=== PATIENT | female | born 1965 | race Two or more races ===

== ENCOUNTER 2017-02-19 09:43 | Emergency (ER) | payer BC ==
[2017-02-19] MEDS ORDERED: Aspirin 81 MG Tab.Chew PO ONE (09:57)
[2017-02-19] MEDS ORDERED: Sodium Chloride 0.9% 1,000 ML IV ONE (09:57)
--- NOTE | 2017-02-19 09:58 | EDM.PDOC ---
<Orlando Zee - Last Filed: 02/19/17 11:16> ED HPI GENERAL MEDICAL PROBLEM - General Chief Complaint: Chest Pain Stated Complaint: BROUGHT OVER FROM CLINIC UNK Time Seen by Provider: 02/19/17 09:57 - History of Present Illness INITIAL COMMENTS - FREE TEXT/NARRATIVE: History of present illness: [51-year-old female comes in complaining of substernal chest pain. Patient has a history of high stressful job and some level of anxiety. Patient denies family history of cardiac issues and/or personal issues of cardiac problems in the past] Review of systems: As per history of present illness and below otherwise all systems reviewed and negative. Past medical history: As per history of present illness and as reviewed below otherwise noncontributory. Surgical history: As per history of present illness and as reviewed below otherwise noncontributory. Social history: No reported history of drug or alcohol abuse. Family history: As per history of present illness and as reviewed below otherwise noncontributory. Physical exam: HEENT: Atraumatic, normocephalic, pupils reactive, negative for conjunctival pallor or scleral icterus, mucous membranes moist, throat clear, neck supple, nontender, trachea midline. Lungs: Clear to auscultation, breath sounds equal bilaterally, chest nontender. Heart: S1S2, regular, negative for clicks, rubs, or JVD. Abdomen: Soft, nondistended, nontender. Negative for masses or hepatosplenomegaly. Negative for costovertebral tenderness. Pelvis: Stable nontender. Genitourinary: Deferred. Rectal: Deferred. Extremities: Atraumatic, negative for cords or calf pain. Neurovascular unremarkable. Neuro: Awake, alert, oriented. Cranial nerves II through XII unremarkable. Cerebellum unremarkable. Motor and sensory unremarkable throughout. Exam nonfocal. Diagnostics: [CBC, CMP, chest x-ray, EKG, amylase, lipase, troponin, UA] Therapeutics: [IV fluid] Impression: [#1 atypical chest pain #2 anxiety #3 UTI] Plan: [Antibiotics, brief period of time off of work, prescription for some anxiolytics] Definitive disposition and diagnosis as appropriate pending reevaluation and review of above. Left Chest Pain Score (Numeric/FACES): 6 - Related Data Allergies Allergy/AdvReac Type Severity Reaction Status Date / Time No Known Allergies Allergy Verified 02/19/17 10:17 Home Meds: Home Meds Rosuvastatin [Crestor] 0 mg PO DAILY 10/14/14 [History] Nitrofurantoin Monohyd/M-Cryst [Macrobid 100 mg Capsule] 100 mg PO BID #20 capsule 02/19/17 [Rx] ED ROS GENERAL - Review of Systems Review Of Systems: See Below (See history of present illness) ED EXAM, GENERAL - Physical Exam Exam: See Below (History of present illness) Course - Vital Signs Last Recorded V/S: Last Vital Signs Temp 36.1 C 02/19/17 10:15 Pulse 64 02/19/17 11:32 Resp 18 02/19/17 11:32 BP 128/79 02/19/17 11:32 Pulse Ox 98 02/19/17 11:32 - Orders/Labs/Meds Labs: Laboratory Tests 02/19/17 02/19/17 02/19/17 Range/Units 10:10 10:10 10:34 WBC 5.68 (4.0-11.0) K/uL RBC 4.56 (4.30-5.90) M/uL Hgb 13.2 (12.0-16.0) g/dL Hct 40.3 (36.0-46.0) % MCV 88.4 (80.0-98.0) fL MCH 28.9 (27.0-32.0) pg MCHC 32.8 (31.0-37.0) g/dL RDW Std Deviation 43.3 (28.0-62.0) fl RDW Coeff of Benjamin 13 (11.0-15.0) % Plt Count 225 (150-400) K/uL MPV 10.00 (7.40-12.00) fL Neut % (Auto) 43.2 L (48.0-80.0) % Lymph % (Auto) 47.4 H (16.0-40.0) % [place] % (Auto) 7.0 (0.0-15.0) % Eos % (Auto) 1.9 (0.0-7.0) % Baso % (Auto) 0.5 (0.0-1.5) % Neut # (Auto) 2.5 (1.4-5.7) K/uL Lymph # (Auto) 2.7 H (0.6-2.4) K/uL [place] # (Auto) 0.4 (0.0-0.8) K/uL Eos # (Auto) 0.1 (0.0-0.7) K/uL Baso # (Auto) 0.0 (0.0-0.1) K/uL Nucleated RBC % 0.0 /100WBC Nucleated RBCs # 0 K/uL Sodium 140 (136-146) mmol/L Potassium 3.9 (3.5-5.1) mmol/L Chloride 108 (98-110) mmol/L Carbon Dioxide 24 (21-31) mmol/L BUN 13 (6.0-23.0) mg/dL Creatinine 0.7 (0.6-1.5) mg/dL Est Cr Clr Drug Dosing 81.18 mL/min Estimated GFR (MDRD) > 60.0 ml/min Glucose 89 (60-110) mg/dL Calcium 9.1 (8.8-10.8) mg/dL Total Bilirubin 0.5 (0.1-1.5) mg/dL AST 25 (5-40) IU/L ALT 21 (8-54) IU/L Alkaline Phosphatase 78 (40-150) Creatine Kinase 143 (9-236) IU/L CK-MB (CK-2) 1.1 (0-6.6) ng/ml Troponin I < 0.10 (0.0-0.29) NG/ML Total Protein 7.5 (6.0-8.0) g/dL Albumin 4.1 (3.5-5.0) g/dL Globulin 3.4 (2.0-3.5) g/dL Albumin/Globulin Ratio 1.2 L (1.3-2.8) Amylase 64 (10-90) U/L Lipase 20 (7-80) U/L Urine Color YELLOW Urine Appearance CLOUDY Urine pH 6.0 (5.0-8.0) Ur Specific [place] 1.020 (1.001-1.035) Urine Protein NEGATIVE (NEGATIVE) mg/dL Urine Glucose (UA) NEGATIVE (NEGATIVE) mg/dL Urine Ketones NEGATIVE (NEGATIVE) mg/dL Urine Occult Blood NEGATIVE (NEGATIVE) Urine Nitrite POSITIVE H (NEGATIVE) Urine Bilirubin NEGATIVE (NEGATIVE) Urine Urobilinogen 0.2 (<2.0) EU/dL Ur Leukocyte Esterase LARGE (NEGATIVE) Urine RBC 0-1 (0-2/HPF) Urine WBC 45-50 (0-5/HPF) Ur Epithelial Cells FEW (NONE-FEW) Urine Bacteria 2+ H (NEGATIVE) Meds: Medications Discontinued Medications Generic Name Dose Route Start Last Admin Trade Name Pura PRN Reason Stop Dose Admin Aspirin 324 mg 02/19/17 09:57 02/19/17 10:12 Aspirin PO 02/19/17 09:58 324 mg ONETIME ONE Administration Sodium Chloride 1,000 mls @ 999 mls/hr 02/19/17 09:57 02/19/17 10:13 Normal Saline IV 02/19/17 10:57 999 mls/hr STAT ONE Administration Departure - Departure Time of Disposition: Disposition: Home, Self-Care 01 Condition: Good Clinical Impression: UTI (urinary tract infection), Anxiety, Atypical chest pain - Discharge Information Prescriptions: Nitrofurantoin Monohyd/M-Cryst [Macrobid 100 mg Capsule] 100 mg PO BID #20 capsule Instructions: Urinary Tract Infection, Adult, [id number] Referrals: PCP,Unknown [Primary Care Provider] - Forms: ED Department Discharge Additional Instructions: The following information is given to patients seen in the emergency department who are being discharged to home. This information is to outline your options for follow-up care. We provide all patients seen in our emergency department with a follow-up referral. The need for follow-up, as well as the timing and circumstances, are variable depending upon the specifics of your emergency department visit. If you don't have a primary care physician on staff, we will provide you with a referral. We always advise you to contact your personal physician following an emergency department visit to inform them of the circumstance of the visit and for follow-up with them and/or the need for any referrals to a consulting specialist. The emergency department will also refer you to a specialist when appropriate. This referral assures that you have the opportunity for follow-up care with a specialist. All of these measure are taken in an effort to provide you with optimal care, which includes your follow-up. Under all circumstances we always encourage you to contact your private physician who remains a resource for coordinating your care. When calling for follow-up care, please make the office aware that this follow-up is from your recent emergency room visit. If for any reason you are refused follow-up, please contact the [facility] Emergency Department at and asked to speak to the emergency department charge nurse. Take medication as directed Follow-up with PCP in 1-2 days Return to ED as needed as discussed <Chris Baum - Last Filed: 02/22/17 08:10> ED HPI GENERAL MEDICAL PROBLEM - General Source of Information: Reports: Patient - History of Present Illness INITIAL COMMENTS - FREE TEXT/NARRATIVE: HISTORY AND PHYSICAL: Patient seen and examined by Orlando zee, see her note Definitive disposition and diagnosis as appropriate pending reevaluation and review of above. Past Medical History - Past Health History Medical/Surgical History: Denies Medical/Surgical History Cardiovascular History: Reports: High Cholesterol - Infectious Disease History Infectious Disease History: Reports: Chicken Pox Social & Family History - Family History Family Medical History: Noncontributory - Tobacco Use Smoking Status *Q: Former Smoker Years of Tobacco use: 4 - Caffeine Use Caffeine Use: Reports: Coffee - Recreational Drug Use Recreational Drug Use: No Course - Vital Signs Last Recorded V/S: Last Vital Signs Temp 36.1 C 02/19/17 10:15 Pulse 64 02/19/17 11:32 Resp 18 02/19/17 11:32 BP 128/79 02/19/17 11:32 Pulse Ox 98 02/19/17 11:32 - Orders/Labs/Meds Labs: Laboratory Tests 02/19/17 02/19/17 02/19/17 Range/Units 10:10 10:10 10:34 WBC 5.68 (4.0-11.0) K/uL RBC 4.56 (4.30-5.90) M/uL Hgb 13.2 (12.0-16.0) g/dL Hct 40.3 (36.0-46.0) % MCV 88.4 (80.0-98.0) fL MCH 28.9 (27.0-32.0) pg MCHC 32.8 (31.0-37.0) g/dL RDW Std Deviation 43.3 (28.0-62.0) fl RDW Coeff of Benjamin 13 (11.0-15.0) % Plt Count 225 (150-400) K/uL MPV 10.00 (7.40-12.00) fL Neut % (Auto) 43.2 L (48.0-80.0) % Lymph % (Auto) 47.4 H (16.0-40.0) % [place] % (Auto) 7.0 (0.0-15.0) % Eos % (Auto) 1.9 (0.0-7.0) % Baso % (Auto) 0.5 (0.0-1.5) % Neut # (Auto) 2.5 (1.4-5.7) K/uL Lymph # (Auto) 2.7 H (0.6-2.4) K/uL [place] # (Auto) 0.4 (0.0-0.8) K/uL Eos # (Auto) 0.1 (0.0-0.7) K/uL Baso # (Auto) 0.0 (0.0-0.1) K/uL Nucleated RBC % 0.0 /100WBC Nucleated RBCs # 0 K/uL Sodium 140 (136-146) mmol/L Potassium 3.9 (3.5-5.1) mmol/L Chloride 108 (98-110) mmol/L Carbon Dioxide 24 (21-31) mmol/L BUN 13 (6.0-23.0) mg/dL Creatinine 0.7 (0.6-1.5) mg/dL Est Cr Clr Drug Dosing 81.18 mL/min Estimated GFR (MDRD) > 60.0 ml/min Glucose 89 (60-110) mg/dL Calcium 9.1 (8.8-10.8) mg/dL Total Bilirubin 0.5 (0.1-1.5) mg/dL AST 25 (5-40) IU/L ALT 21 (8-54) IU/L Alkaline Phosphatase 78 (40-150) Creatine Kinase 143 (9-236) IU/L CK-MB (CK-2) 1.1 (0-6.6) ng/ml Troponin I < 0.10 (0.0-0.29) NG/ML Total Protein 7.5 (6.0-8.0) g/dL Albumin 4.1 (3.5-5.0) g/dL Globulin 3.4 (2.0-3.5) g/dL Albumin/Globulin Ratio 1.2 L (1.3-2.8) Amylase 64 (10-90) U/L Lipase 20 (7-80) U/L Urine Color YELLOW Urine Appearance CLOUDY Urine pH 6.0 (5.0-8.0) Ur Specific [place] 1.020 (1.001-1.035) Urine Protein NEGATIVE (NEGATIVE) mg/dL Urine Glucose (UA) NEGATIVE (NEGATIVE) mg/dL Urine Ketones NEGATIVE (NEGATIVE) mg/dL Urine Occult Blood NEGATIVE (NEGATIVE) Urine Nitrite POSITIVE H (NEGATIVE) Urine Bilirubin NEGATIVE (NEGATIVE) Urine Urobilinogen 0.2 (<2.0) EU/dL Ur Leukocyte Esterase LARGE (NEGATIVE) Urine RBC 0-1 (0-2/HPF) Urine WBC 45-50 (0-5/HPF) Ur Epithelial Cells FEW (NONE-FEW) Urine Bacteria 2+ H (NEGATIVE) Meds: Medications Discontinued Medications Generic Name Dose Route Start Last Admin Trade Name Freq PRN Reason Stop Dose Admin Aspirin 324 mg 02/19/17 09:57 02/19/17 10:12 Aspirin PO 02/19/17 09:58 324 mg ONETIME ONE Administration Sodium Chloride 1,000 mls @ 999 mls/hr 02/19/17 09:57 02/19/17 10:13 Normal Saline IV 02/19/17 10:57 999 mls/hr STAT ONE Administration
[2017-02-19 10:43] LABS: CHLORIDE,CL 108 mmol/L (98-110); SODIUM,NA 140 mmol/L (136-146)
--- NOTE | 2017-02-19 10:58 | CR ---
EXAMINATION: Portable chest radiograph. HISTORY: Pain. FINDINGS: The trachea is midline. The cardiomediastinal silhouette is within normal limits. No pulmonary infilt rates, effusions or pneumothorax. Osseous structures appear unremarkable. IMPRESSION: No acute cardiopulmonary process.
[2017-02-19 11:37] VITALS: BP 128/79
== END 2017-02-19 11:34 | disposition home or self-care (01) ==
LOC: MW.ED 09:43
DX: R07.89 Other chest pain (principal); F41.9 Anxiety disorder, unspecified; N39.0 Urinary tract infection, site not specified; Z87.891 Personal history of nicotine dependence
CPT/HCPCS: 71010; 80053; 81001; 82150; 82550; 82553; 83690; 84484; 85025; 93005; 96360; 99285; A9270; J7040; 99283

== ENCOUNTER 2018-10-22 10:02 | Emergency (ER) | payer BC, OTHER ==
[2018-10-22] MEDS ORDERED: Ketorolac 30 MG/ML SDV IM ONE (10:38)
[2018-10-22] MEDS ORDERED: Diphtheria,Pertussis(Acell),Tetanus Vaccine 0.5 ML Syringe IM ONE (10:42)
--- NOTE | 2018-10-22 10:53 | EDM.PDOC ---
ED HPI GENERAL MEDICAL PROBLEM - General Chief Complaint: Lower Extremity Injury/Pain Stated Complaint: INJURED LEG Time Seen by Provider: 10/22/18 10:49 - History of Present Illness INITIAL COMMENTS - FREE TEXT/NARRATIVE: 53 y/o female here for right lower extremity pain. States that a small steel table fell on her right mid tibial area. Endorses pain when ambulating or direct pressure. No history of trauma, fractures, surgeries to lower extremities. Took ibuprofen with minimal improvement in pain. No active bleeding. Does not recall her last tetanus shot. Sensation and foot strength intact. right gentile-lower leg Pain Score (Numeric/FACES): 8 - Related Data Allergies Allergy/AdvReac Type Severity Reaction Status Date / Time No Known Allergies Allergy Verified 10/22/18 10:26 Home Meds: Home Meds Rosuvastatin [Crestor] 10 mg PO DAILY 10/14/14 [History] Ascorbic Acid/Ascorbate Sodium [Vitamin C 250 mg Tablet Chew] 1 tab PO DAILY [History] Aspirin 81 mg PO DAILY 10/22/18 [History] Past Medical History - Past Health History Medical/Surgical History: Denies Medical/Surgical History Cardiovascular History: Reports: High Cholesterol - Infectious Disease History Infectious Disease History: Reports: Chicken Pox Social & Family History - Family History Family Medical History: Noncontributory - Tobacco Use Smoking Status *Q: Never Smoker - Caffeine Use Caffeine Use: Reports: Coffee - Recreational Drug Use Recreational Drug Use: No Review of Systems - Review of Systems Review Of Systems: ROS reveals no pertinent complaints other than HPI. ED EXAM, GENERAL - Physical Exam Exam: See Below General Appearance: Alert, WD/WN, No Apparent Distress Extremities: Other (right lower extremity abrasion on right mid tibial area. No active bleeding. Sensation and strength intact. Able to ambulate without assistance.) Course - Vital Signs Text/Narrative:: Toradol 30 mg IM once. Tdap IM once. Xray of right tibia do not show any acute fractures. Last Recorded V/S: Last Vital Signs Temp 36.2 C 10/22/18 10:24 Pulse 76 10/22/18 10:24 Resp 16 10/22/18 10:24 BP 128/96 H 10/22/18 10:24 Pulse Ox 97 10/22/18 10:24 - Orders/Labs/Meds Orders: Active Orders 24 hr Category Date Time Status Vaccines to be Administered [RC] PER UNIT ROUTINE Care 10/22/18 10:42 Active Meds: Medications Discontinued Medications Generic Name Dose Route Start Last Admin Trade Name Pura PRN Reason Stop Dose Admin Diphtheria/Tetanus/Acell Pertussis 0.5 ml 10/22/18 10:42 10/22/18 10:57 Adacel IM 10/22/18 10:43 0.5 ml .ONCE ONE Administration Ketorolac Tromethamine 30 mg 10/22/18 10:38 10/22/18 10:56 Toradol IM 10/22/18 10:39 30 mg ONETIME ONE Administration Departure - Departure Time of Disposition: 11:36 Disposition: Home, Self-Care 01 Condition: Good Clinical Impression: Contusion of right tibia, Abrasion - Discharge Information *PRESCRIPTION DRUG MONITORING PROGRAM REVIEWED*: Not Applicable *COPY OF PRESCRIPTION DRUG MONITORING REPORT IN PATIENT WAQAS: Not Applicable Instructions: Contusion, [id number] Referrals: PCP,Unknown [Primary Care Provider] - Forms: ED Department Discharge Additional Instructions: The following information is given to patients seen in the emergency department who are being discharged to home. This information is to outline your options for follow-up care. We provide all patients seen in our emergency department with a follow-up referral. The need for follow-up, as well as the timing and circumstances, are variable depending upon the specifics of your emergency department visit. If you don't have a primary care physician on staff, we will provide you with a referral. We always advise you to contact your personal physician following an emergency department visit to inform them of the circumstance of the visit and for follow-up with them and/or the need for any referrals to a consulting specialist. The emergency department will also refer you to a specialist when appropriate. This referral assures that you have the opportunity for follow-up care with a specialist. All of these measure are taken in an effort to provide you with optimal care, which includes your follow-up. Under all circumstances we always encourage you to contact your private physician who remains a resource for coordinating your care. When calling for follow-up care, please make the office aware that this follow-up is from your recent emergency room visit. If for any reason you are refused follow-up, please contact the [facility] Emergency Department at and asked to speak to the emergency department charge nurse. change dressing daily. Apply bacitracin. Seek medical attention if more tender, swollen and drainage. - My Orders Last 24 Hours: My Active Orders 10/22/18 10:42 Vaccines to be Administered [RC] PER UNIT ROUTINE - Assessment/Plan Last 24 Hours: My Active Orders 10/22/18 10:42 Vaccines to be Administered [RC] PER UNIT ROUTINE
--- NOTE | 2018-10-22 11:32 | CR ---
EXAMINATION: Right tibia and fibula HISTORY: Pain COMPARISON: None TECHNIQUE: 2 views FINDINGS: There is soft tissue swelling along the medial aspect of the knee and right lower leg. Small rounded densities also project over this region which may represent debris. This may also represent venous calcifications. There is no fracture or acute osseous abnormality. Bone mineralization is normal. Possibly tiny osteochondroma along the medial aspect of proximal tibia. IMPRESSION: 1. Soft tissue swelling and possible subcutaneous debris noted along the medial aspect of the lower leg and knee. 2. No acute osseous abnormality demonstrated.
[2018-10-22 11:55] VITALS: BP 128/81
== END 2018-10-22 11:51 | disposition home or self-care (01) ==
LOC: MW.ED 10:02
DX: S80.11XA Contusion of right lower leg, initial encounter (principal); E78.00 Pure hypercholesterolemia, unspecified; Z23 Encounter for immunization; W20.8XXA Other cause of strike by thrown, projected or falling object, initial encounter; Z79.82 Long term (current) use of aspirin; Z79.899 Other long term (current) drug therapy
CPT/HCPCS: 73590; 90471; 90715; 96372; 99283; J1885

== ENCOUNTER 2020-12-06 10:31 | Emergency (ER) | payer BC ==
[2020-12-06] MEDS ORDERED: Sodium Chloride 0.9% 1,000 ML IV ONE (10:52)
[2020-12-06] MEDS ORDERED: Sodium Chloride 0.9% 10 ML Syringe FLUSH PRN (10:52)
[2020-12-06] MEDS ORDERED: Sodium Chloride 0.9% 2.5 ML Syringe FLUSH PRN (10:52)
[2020-12-06] MEDS ORDERED: Ketorolac 30 MG/ML SDV IVPUSH ONE (11:00)
[2020-12-06] MEDS ORDERED: Ondansetron 4 MG/2 ML SDV IVPUSH ONE (11:00)
--- NOTE | 2020-12-06 11:07 | EDM.PDOC ---
ED HPI GENERAL MEDICAL PROBLEM - General Stated Complaint: COVID POSITIVE HARD TIME BREATHING Time Seen by Provider: 12/06/20 10:33 Source of Information: Reports: Patient History Limitations: Reports: No Limitations - History of Present Illness INITIAL COMMENTS - FREE TEXT/NARRATIVE: HISTORY AND PHYSICAL: History of present illness: Patient is a 55-year-old female, with a history of hyperlipidemia, who presents emergency room today with a known Covid diagnosis since 11/29/2020 with worsening shortness of breath and intermittent hypoxia at home. Patient states that she has been continuously monitoring her oxygen with a pulse oximeter that she has available to her at home. Patient states over the past several days, she has felt more short of breath but states that her oxygen has been normal until today. Patient states that she had a few episodes where her oxygen was consistently 78% and 84% at home and states that she was feeling short of breath during these episodes. Patient states that she got up and walked around and did some breathing techniques and was able to get it to come back up to 94 to 95% but states that because of her shortness of breath and her low oxygen decided to come to the emergency room for further evaluation. Patient states that she has been through menopause for several years and states that she is not . Patient states that she is also had a decrease in appetite and does feel dehydrated. She does note a cough since diagnosis of COVID. Patient denies any other symptoms or concerns. Patient denies fever, chills, chest pain. Denies headache, neck stiff ness, change in vision, syncope, or near syncope. Denies vomiting, abdominal pain, diarrhea, constipation, or dysuria. Has not noted any blood in urine or stool. Review of systems: As per history of present illness and below otherwise all systems reviewed and negative. Past medical history: As per history of present illness and as reviewed below otherwise noncontributory. Surgical history: As per history of present illness and as reviewed below otherwise noncontributory. Social history: See social history for further information Family history: As per history of present illness and as reviewed below otherwise noncontributory. Physical exam: General: Patient is alert, oriented, and in no acute distress. Patient sitting comfortably on exam table. Mildly tachycardic 107 on exam otherwise vitally stable and reviewed by me. HEENT: Atraumatic, normocephalic, pupils equal and reactive bilaterally, negative for conjunctival pallor or scleral icterus, throat clear, neck supple, nontender, trachea midline. No drooling or trismus noted. No meningeal signs. No hot potato voice noted. Lungs: Clear to auscultation, breath sounds equal bilaterally, chest nontender. Heart: S1S2, regular rate and rhythm without overt murmur Abdomen: Soft, nondistended, nontender. Negative for masses or hepatosplenomegaly. Negative for costovertebral tenderness. Pelvis: Stable nontender. Genitourinary: Deferred. Rectal: Deferred. Skin: Intact, warm, dry. No lesions or rashes noted. Extremities: Atraumatic, negative for cords or calf pain. Neurovascular unremarkable. Neuro: Awake, alert, oriented. Cranial nerves II through XII unremarkable. Cerebellum unremarkable. Motor and sensory unremarkable throughout. Exam nonfocal. Notes: Patient is a 55-year-old female, with a history of hyperlipidemia, who presents emergency room today with concern of worsening shortness of breath and intermittent hypoxia with known COVID-19 diagnosis. Upon arrival to the ED, patient is mildly tachycardic 107 on exam, otherwise vitally stable. Patient is 94 to 95% on room air and otherwise breathing comfortably on exam. Will obtain cardiac evaluation with anticipation to obtain and CT chest for rule out possible pulmonary embolism. See Dr. Kumar's dictation for specific EKG interpretation. However, sinus tachycardia with a rate of 107 without signs of STEMI or acute changes. CBC unremarkable. CMP shows mild hyponatremia of 130, hyperchloremia of 95, isolated elevation mildly of AST at 67, otherwise mild derangements of CMP unremarkable. Troponin negative. Angiography of chest shows no evidence of pulmonary thromboembolism. Extensive area of alveolar consolidation throughout both lungs consistent with COVID-19 pneumonia. Enlarged thyroid gland suggest obtaining dedicated ultrasound examination of the thyroid. Small cystic lesion dome of the liver. All incidental findings of imaging today discussed with patient the importance to have this followed up with a primary care provider. Upon reevaluation of patient, she remains vitally stable and comfortable throughout stay in ED. Patient's oxygen consistently remains 95% or higher throughout entire stay in emergency room. Patient's mild tachycardia has improved to the 80s to 90s beats per minute with therapeutics in the emergency room. Strict return precautions thoroughly discussed with patient. Signs and symptoms that were prompt return to the ED thoroughly discussed with patient. Discussed importance of follow-up with a primary care provider following COVID-19 quarantine restrictions. Voices understanding and is agreeable to plan of care. Denies any further questions or concerns at this time. Diagnostics: EKG, CBC, CMP, Ang CT Chest, Trop Therapeutics: NS, Zofran, Toradol Prescription: None Impression: COVID-19 viral infection Plan: 1. Your vital signs and oxygen saturation are well enough that you were able to monitor your symptoms at home. Continue to monitor for trouble breathing, new confusion or inability to arouse, bluish lips or face or any of the other symptoms we discussed -if this occurs please return to the emergency room.Continue to monitor your health at home for worsening symptoms so that you can be taken care of and treated quickly if needed. 2. Please self quarantine until 10 days have passed since your symptoms began AND you are fever free (<100.4 degrees fahrenheit) for 24 hours without the use of fever-reducing medications AND symptoms are improving. You should restrict activities outside of your home, except for getting medical care. Do not go to work, school, or public areas. Avoid using public transportation, ride-sharing, or taxis. Inform any persons that you have been in contact with since you started becoming symptomatic that you have tested positive; they should be made aware and take the appropriate steps as needed. 3. You may alternate Tylenol and ibuprofen as needed for pain and fever management. 4. The the [facility] department will be calling you and following up with you. The [place] COVID 19 Hotline phone number , They are open Sunday - Sunday 7am - 7pm. Follow up with your primary care provider for re-evaluation and re-testing after quarantine and discuss when you should be seen. 5. For more specific guidelines regarding isolation/quarantine please visit this website. https://www.health.[place].gov/sites/www/files/document s/Files/EVE/coronavirus/Factsheet_for_People_With_COVID-19.pdf Definitive disposition and diagnosis as appropriate pending reevaluation and review of above. - Related Data Allergies Allergy/AdvReac Type Severity Reaction Status Date / Time No Known Allergies Allergy Verified 12/06/20 11:16 Home Meds: Home Meds Rosuvastatin [Crestor] 10 mg PO DAILY 10/14/14 [History] Ascorbic Acid [Vitamin C 250 mg Tablet Chew] 1 tab PO DAILY 10/22/18 [History] Aspirin 81 mg PO DAILY 10/22/18 [History] Past Medical History - Past Health History Medical/Surgical History: Denies Medical/Surgical History Cardiovascular History: Reports: High Cholesterol - Infectious Disease History Infectious Disease History: Reports: Chicken Pox Social & Family History - Family History Family Medical History: No Pertinent Family History - Caffeine Use Caffeine Use: Reports: Coffee ED ROS GENERAL - Review of Systems Review Of Systems: Comprehensive ROS is negative, except as noted in HPI. ED EXAM, GENERAL - Physical Exam Exam: See Below (see dictation) Course - Vital Signs Last Recorded V/S: Last Vital Signs Temp 96 F L 12/06/20 10:45 Pulse 106 H 12/06/20 10:45 Resp 17 12/06/20 10:45 BP 111/72 12/06/20 10:45 Pulse Ox 96 12/06/20 10:45 - Orders/Labs/Meds Orders: Active Orders 24 hr Category Date Time Status Cardiac Monitoring [RC] . DIRECTED Care 12/06/20 10:52 Active Sodium Chloride 0.9% [Saline Flush] Med 12/06/20 10:52 Active 10 ml FLUSH ASDIRECTED PRN Sodium Chloride 0.9% [Saline Flush] Med 12/06/20 10:52 Active 2.5 ml FLUSH ASDIRECTED PRN Saline Lock Insert [OM.PC] Stat Oth 12/06/20 10:52 Ordered Medication Orders Sodium Chloride (Sodium Chloride 0.9% 2.5 Ml Syringe) 2.5 ml FLUSH ASDIRECTED PRN PRN Reason: Keep Vein Open Last Admin: 12/06/20 11:13 Dose: 2.5 ml Documented by: BARRY Sodium Chloride (Sodium Chloride 0.9% 10 Ml Syringe) 10 ml FLUSH ASDIRECTED PRN PRN Reason: Keep Vein Open Last Admin: 12/06/20 11:13 Dose: 10 ml Documented by: BARRY Labs: Laboratory Tests 12/06/20 12/06/20 Range/Units 11:07 11:07 WBC 4.87 (4.0-11.0) K/uL RBC 4.92 (4.30-5.90) M/uL Hgb 14.2 (12.0-16.0) g/dL Hct 41.5 (36.0-46.0) % MCV 84.3 (80.0-98.0) fL MCH 28.9 (27.0-32.0) pg MCHC 34.2 (31.0-37.0) g/dL RDW Std Deviation 39.5 (28.0-62.0) fl RDW Coeff of Benjamin 13 (11.0-15.0) % Plt Count 161 (150-400) K/uL MPV 9.80 (7.40-12.00) fL Neut % (Auto) 69.4 (48.0-80.0) % Lymph % (Auto) 19.7 (16.0-40.0) % [place] % (Auto) 10.5 (0.0-15.0) % Eos % (Auto) 0.0 (0.0-7.0) % Baso % (Auto) 0.4 (0.0-1.5) % Neut # (Auto) 3.4 (1.4-5.7) K/uL Lymph # (Auto) 1.0 (0.6-2.4) K/uL [place] # (Auto) 0.5 (0.0-0.8) K/uL Eos # (Auto) 0.0 (0.0-0.7) K/uL Baso # (Auto) 0.0 (0.0-0.1) K/uL Nucleated RBC % 0.0 /100WBC Nucleated RBCs # 0 K/uL Sodium 130 L (136-145) mmol/L Potassium 4.2 (3.5-5.1) mmol/L Chloride 95 L (98-107) mmol/L Carbon Dioxide 26.5 (21.0-32.0) mmol/L BUN 8 (7.0-18.0) mg/dL Creatinine 0.7 (0.6-1.0) mg/dL Est Cr Clr Drug Dosing 77.49 mL/min Estimated GFR (MDRD) > 60.0 ml/min Glucose 103 (74-106) mg/dL Calcium 8.3 L (8.5-10.1) mg/dL Total Bilirubin 0.3 (0.2-1.0) mg/dL AST 67 H (15-37) IU/L ALT 56 (14-63) IU/L Alkaline Phosphatase 90 (46-116) U/L Troponin I < 0.050 (0.000-0.056) ng/mL Total Protein 7.9 (6.4-8.2) g/dL Albumin 3.7 (3.4-5.0) g/dL Globulin 4.2 H (2.6-4.0) g/dL Albumin/Globulin Ratio 0.9 (0.9-1.6) Meds: Medications Generic Name Dose Route Start Last Admin Trade Name Freq PRN Reason Stop Dose Admin Sodium Chloride 2.5 ml 12/06/20 10:52 12/06/20 11:13 Sodium Chloride 0.9% 2.5 Ml Syringe FLUSH 2.5 ml ASDIRECTED PRN Administration Keep Vein Open Sodium Chloride 10 ml 12/06/20 10:52 12/06/20 11:13 Sodium Chloride 0.9% 10 Ml Syringe FLUSH 10 ml ASDIRECTED PRN Administration Keep Vein Open Discontinued Medications Generic Name Dose Route Start Last Admin Trade Name Freq PRN Reason Stop Dose Admin Sodium Chloride 1,000 mls @ 999 mls/hr 12/06/20 10:52 12/06/20 11:12 Normal Saline IV 12/06/20 11:52 999 mls/hr BOLUS ONE Administration Ketorolac Tromethamine 30 mg 12/06/20 11:00 12/06/20 11:12 Ketorolac 30 Mg/Ml Sdv IVPUSH 12/06/20 11:01 30 mg ONETIME ONE Administration Ondansetron HCl 4 mg 12/06/20 11:00 12/06/20 11:12 Ondansetron 4 Mg/2 Ml Sdv IVPUSH 12/06/20 11:01 4 mg ONETIME ONE Administration Departure - Departure Time of Disposition: 15:15 Disposition: Home, Self-Care 01 Clinical Impression: COVID-19 virus infection - Discharge Information Instructions: COVID-19 Frequently Asked Questions, COVID-19, COVID-19 Vaccine Information, 10 Things You Can Do to Manage Your COVID-19 Symptoms at Home - [facility] (10/08/2019), COVID-19: How to Protect Yourself and Others - [facility] Referrals: PCP,None [Primary Care Provider] - Forms: ED Department Discharge Additional Instructions: The following information is given to patients seen in the emergency department who are being discharged to home. This information is to outline your options for follow-up care. We provide all patients seen in our emergency department with a follow-up referral. The need for follow-up, as well as the timing and circumstances, are variable depending upon the specifics of your emergency department visit. If you don't have a primary care physician on staff, we will provide you with a referral. We always advise you to contact your personal physician following an emergency department visit to inform them of the circumstance of the visit and for follow-up with them and/or the need for any referrals to a consulting specialist. The emergency department will also refer you to a specialist when appropriate. This referral assures that you have the opportunity for follow-up care with a specialist. All of these measure are taken in an effort to provide you with optimal care, which includes your follow-up. Under all circumstances we always encourage you to contact your private physician who remains a resource for coordinating your care. When calling for follow-up care, please make the office aware that this follow-up is from your recent emergency room visit. If for any reason you are refused follow-up, please contact the [facility] Emergency Department at and asked to speak to the emergency department charge nurse. [facility] [address] [place] [address] [place] [address] 1. Your vital signs and oxygen saturation are well enough that you were able to monitor your symptoms at home. Continue to monitor for trouble breathing, new confusion or inability to arouse, bluish lips or face or any of the other symptoms we discussed -if this occurs please return to the emergency room.Continue to monitor your health at home for worsening symptoms so that you can be taken care of and treated quickly if needed. 2. Please self quarantine until 10 days have passed since your symptoms began AND you are fever free (<100.4 degrees fahrenheit) for 24 hours without the use of fever-reducing medications AND symptoms are improving. You should restrict activities outside of your home, except for getting medical care. Do not go to work, school, or public areas. Avoid using public transportation, ride-sharing, or taxis. Inform any persons that you have been in contact with since you started becoming symptomatic that you have tested positive; they should be made aware and take the appropriate steps as needed. 3. You may alternate Tylenol and ibuprofen as needed for pain and fever management. 4. The [facility] will be calling you and following up with you. The [place] COVID 19 Hotline phone number , They are open Sunday - Sunday 7am - 7pm. Follow up with your primary care provider for re-evaluation and re-testing after quarantine and discuss when you should be seen. 5. For more specific guidelines regarding isolation/quarantine please visit this website. https://www.health.[place].gov/sites/www/files/documents/Files/EVE/coronavirus/Factsh eet_for_People_With_COVID-19.pdf Sepsis Event Note (ED) - Focused Exam Vital Signs: Vital Signs Temp Pulse Resp BP Pulse Ox 12/06/20 10:45 96 F L 106 H 17 111/72 96 - My Orders Last 24 Hours: My Active Orders 12/06/20 10:52 Cardiac Monitoring [RC] . DIRECTED Sodium Chloride 0.9% [Saline Flush] 10 ml FLUSH ASDIRECTED PRN Sodium Chloride 0.9% [Saline Flush] 2.5 ml FLUSH ASDIRECTED PRN Saline Lock Insert [OM.PC] Stat - Assessment/Plan Last 24 Hours: My Active Orders 12/06/20 10:52 Cardiac Monitoring [RC] . DIRECTED Sodium Chloride 0.9% [Saline Flush] 10 ml FLUSH ASDIRECTED PRN Sodium Chloride 0.9% [Saline Flush] 2.5 ml FLUSH ASDIRECTED PRN Saline Lock Insert [OM.PC] Stat
[2020-12-06 11:42] LABS: BLOOD UREA NITROGEN,BUN 8 mg/dL (7.0-18.0); CARBON DIOXIDE,CO2 26.5 mmol/L (21.0-32.0); CHLORIDE,CL 95 mmol/L (98-107); GLUCOSE RANDOM 103 mg/dL (74-106); POTASSIUM,K 4.2 mmol/L (3.5-5.1); SODIUM,NA 130 mmol/L (136-145)
--- NOTE | 2020-12-06 11:46 | PCM.EKG ---
#1 Interpretation EKG Date: 12/06/20 Time: 10:44 Rhythm: NSR Rate (Beats/Min): 107 [place]: Normal P-Wave: Present QRS: Normal ST-T: Normal QT: Normal Comparison: No Change (02/19/17) EKG Interpretation Comments: Sinus Tachycardia
--- NOTE | 2020-12-06 15:02 | CT ---
INDICATION: Hypoxia; tachycardia; COVID-19 positive. Comparison :none. TECHNIQUE: CT chest with intravenous contrast; coronal and sagittal reformats. FINDINGS: No CT evidence of acute or chronic pulmonary thromboembolism. No evidence of aortic aneurysm or dissection. Normal size cardiac silhouette without any evidence of pericardial effusion. No abnormal mediastinal or hilar lymphadenopathy stalk extensive areas of alveolar consolidation both lungs predominantly in the upper lungs; diagnostic of COVID-19 pneumonia. No evidence of pleural effusion . Limited CT through the upper abdomen is unremarkable. Enlarged left lobe thyroid gland; suggest obtaining a dedicated ultrasound examination of the thyroid. IMPRESSION: 1. No CT evidence of pulmonary thromboembolism. 2. extensive areas of alveolar consolidation throughout both lungs; diagnostic of COVID-19 pneumonia. 3. Enlarged thyroid gland; suggest obtaining dedicated ultrasound examination of the thyroid. 4. Small cystic lesions dome of the liver. Please note that all CT scans at this facility use dose modulation, iterative reconstruction, and/or weight-based dosing when appropriate to reduce radiation dose to as low as reasonably achievable. Dictated by Regine Campbell MD @ 12/06/2020 3:00:[address] Regine Campbell @ Dec 06 2020 3:00PM
[2020-12-06 16:22] VITALS: BP 94/62; PULSE 90
[2020-12-06] MEDS ORDERED: Iopamidol 755 MG/ML 500 ML Multipack Bottle IVPUSH STA (17:18)
== END 2020-12-06 15:21 | disposition home or self-care (01) ==
LOC: MW.ED 10:31
DX: U07.1 COVID-19 (principal); E78.00 Pure hypercholesterolemia, unspecified; Z79.82 Long term (current) use of aspirin; Z79.899 Other long term (current) drug therapy
CPT/HCPCS: 36415; 71275; 80053; 84484; 85025; 93005; 96374; 96375; 99285; J1885; J2405; J7030; Q9967

== ENCOUNTER 2023-04-24 12:25 | Emergency (ER) | payer BC, OTHER ==
[2023-04-24] MEDS ORDERED: Sodium Chloride 0.9% 2.5 ML Syringe FLUSH PRN (12:32)
[2023-04-24] MEDS ORDERED: Ondansetron 4 MG/2 ML SDV IVPUSH ONE (12:32)
[2023-04-24] MEDS ORDERED: Sodium Chloride 0.9% 1,000 ML IV ONE (12:32)
[2023-04-24] MEDS ORDERED: Sodium Chloride 0.9% 10 ML Syringe FLUSH PRN (12:32)
[2023-04-24 12:42] LABS: BASOPHILS ABSOLUTE AUTO 0.05 K/uL (0.00-0.20); BASOPHILS PERCENT AUTO 0.8 % (0.0-1.0); EOSINOPHILS ABSOLUTE AUTO 0.06 K/uL (0.00-0.45); HEMATOCRIT 40.3 % (37.0-47.0); HEMOGLOBIN 13.7 g/dL (12.0-16.0); IMMATURE GRAN ABSOLUTE AUTO 0.02 K/uL (0.00-0.05); IMMATURE GRAN PERCENT AUTO 0.3 % (0.0-0.4); LYMPHOCYTES PERCENT AUTO 49.9 % (24.0-44.0); MEAN CORPUSCULAR HEMOGLOBIN 29.5 pg (28.0-32.0); MEAN CORPUSCULAR VOLUME 86.9 fL (83.0-99.0); MEAN PLATELET VOLUME 9.4 fL (9.4-12.3); MONOCYTES ABSOLUTE AUTO 0.35 K/uL (0.00-0.80); MONOCYTES PERCENT AUTO 5.8 % (0.0-8.0); NEUTROPHILS ABSOLUTE AUTO 2.53 K/uL (1.80-7.70); NEUTROPHILS PERCENT AUTO 42.2 % (41.0-71.0); PLATELET COUNT,PLT 235 K/uL (150-400); RED BLOOD CELL COUNT 4.64 M/uL (4.10-5.30); WHITE BLOOD CELL COUNT,WBC 6.01 K/uL (3.9-11.3)
[2023-04-24] MEDS ORDERED: Metoclopramide 10 MG/2 ML SDV IVPUSH ONE (12:42)
[2023-04-24] MEDS ORDERED: diphenhydrAMINE 50 MG/ML SDV IVPUSH ONE (12:42)
[2023-04-24 12:45] LABS: BASE EXCESS VENOUS 2.8 (-2.0-3.0); PH,VENOUS 7.37 (7.31-7.41)
[2023-04-24 13:04] LABS: BLOOD UREA NITROGEN,BUN 8 mg/dL (7.0-18.0); CALCIUM 9.3 mg/dL (8.5-10.1); CARBON DIOXIDE,CO2 29.6 mmol/L (21.0-32.0); CHLORIDE,CL 104 mmol/L (98-107); CREATININE 0.6 mg/dL (0.6-1.0); EST CRCL DRUG DOSING (CG) 91.96 mL/min; GLUCOSE RANDOM 85 mg/dL (74-106); SODIUM,NA 143 mmol/L (136-145)
[2023-04-24 13:08] LABS: ESTIMATED GFR 104 mL/min (>60)
[2023-04-24 15:31] VITALS: BP 116/69; PULSE 70
== END 2023-04-24 15:29 | disposition home or self-care (01) ==
LOC: MW.ED 12:25
DX: T58.91XA Toxic effect of carbon monoxide from unspecified source, accidental (unintentional), initial encounter (principal); R51.9 Headache, unspecified; R42 Dizziness and giddiness; E78.00 Pure hypercholesterolemia, unspecified
CPT/HCPCS: 36415; 70450; 80048; 82375; 82803; 84484; 85025; 93005; 96361; 96374; 96375; 99285; J1200; J2765; J3490; J7030; 93010; 99284